=== PATIENT | female | born 1950 | race Asian ===

== ENCOUNTER 2020-12-17 20:56 | Inpatient (IN) | payer BC, OTHER ==
[~2020-12-17] VITALS: Ht 154.9 cm; Wt 52.4 kg
[2020-12-17] MEDS ORDERED: ONDANSETRON HCL 4 MG/2 ML VIAL IV ONE (21:30)
[2020-12-17] MEDS ORDERED: fentaNYL CITRATE 100 MCG/2 ML VL IV ONE ×2 (21:30→23:30)
[2020-12-17 21:31] LABS: Basophils # (auto) 0.1 10 ^3/uL (0-0.2); Basophils % (auto) 1.1 % (0.0-2.0); Eosinophils # (auto) 0 10 ^3/uL (0-0.8); Eosinophils % (auto) 0.2 % (0.0-7.0); Hematocrit 41.3 % (36.0-46.0); Hemoglobin 14.1 g/dL (12.2-16.2); Lymphocytes # (auto) 1.7 10 ^3/uL (0.4-5.4); Lymphocytes % (auto) 16.7 % (10.0-50.0); Mean Corpuscular Hemoglobin 32.7 pg (28.0-32.0); Mean Corpuscular Volume 96.1 fL (80.0-100.0); Monocytes # (auto) 0.5 10 ^3/uL (0-1.3); Monocytes % (auto) 4.7 % (0.0-12.0); Neutrophils # (auto) 7.9 10 ^3/uL (1.6-8.6); Neutrophils % (auto) 77.3 % (37.0-80.0); Red Cell Distribution Width 12.5 % (11.8-14.3); White Blood Cell 10.2 10^3/uL (4.4-10.8)
[2020-12-17 21:45] LABS: INR 0.97 (0.9-1.15)
[2020-12-17] MEDS ORDERED: SODIUM CHLORIDE 0.9% 1,000 ML IV ONE (21:45)
[2020-12-17 21:48] LABS: Albumin 4.3 g/dL (3.4-5.0); Calcium 10.7 mg/dL (8.5-10.1); Potassium 3.6 mmol/L (3.5-5.1)
[2020-12-17 21:52] LABS: BUN/Creatinine Ratio 44.2; Bilirubin, Total 0.4 mg/dL (0.2-1.0); Total Protein 7.4 g/dL (6.4-8.2)
[2020-12-17] MEDS ORDERED: IOHEXOL 300 MG/ML 100ML BOTTLE IJ ONE (22:32)
[2020-12-18] MEDS ORDERED: HYDROmorphone HCL 2 MG/ML VL IV ONE (01:15)
[2020-12-18] MEDS ORDERED: CIPROFLOXACIN 400MG/200ML 200 ML IV ONE (01:15)
[2020-12-18] MEDS ORDERED: metroNIDAZOLE 500MG/100ML 100 ML IV ONE (01:15)
[2020-12-18 01:27] LABS: Urine Bacteria NONE SEEN /hpf (None Seen); Urine Blood 1+ /uL (Negative); Urine Mucus FEW (None Seen); Urine WBC 1 /hpf (0 - 5)
[2020-12-18 01:34] LABS: Urine Specific Gravity > 1.050 (1.001-1.035)
[2020-12-18] MEDS ORDERED: MORPHINE SULFATE INJECTION 2 MG/ML SYRG IV PRN ×2 (02:45→11:30)
[2020-12-18] MEDS ORDERED: NITROGLYCERIN 0.4 MG SL TAB SL PRN (02:45)
[2020-12-18] MEDS: SODIUM CHLORIDE 0.9% 1,000 ML IV SCH ×2 (03:03→14:25)
[2020-12-18 04:04] LABS: Hematocrit 38.3 % (36.0-46.0); Hemoglobin 12.9 g/dL (12.2-16.2)
[2020-12-18 05:00] VITALS: BP 129/74
[2020-12-18] MEDS: metroNIDAZOLE 500MG/100ML 100 ML IV SCH ×3 (05:22→21:50)
[2020-12-18 09:00] VITALS: BP 122/60
[2020-12-18] MEDS: PANTOPRAZOLE 40 MG/10 ML VIAL INJ IV SCH ×2 (09:32→21:50)
[2020-12-18] MEDS: ONDANSETRON HCL 4 MG/2 ML VIAL IV PRN ×2 (11:40→15:43)
[2020-12-18 13:00] VITALS: BP 134/76
[2020-12-18] MEDS: MORPHINE SULFATE INJECTION 2 MG/ML SYRG IV PRN ×2 (15:44→19:57)
[2020-12-18 17:00] VITALS: BP 110/67
[2020-12-18 18:49] LABS: Hematocrit 36.5 % (36.0-46.0); Hemoglobin 12.4 g/dL (12.2-16.2)
[2020-12-18 22:00] VITALS: BP 116/53
[2020-12-19] MEDS: SODIUM CHLORIDE 0.9% 1,000 ML IV SCH ×3 (02:17→09:25)
[2020-12-19 05:00] VITALS: BP 100/56
[2020-12-19] MEDS: metroNIDAZOLE 500MG/100ML 100 ML IV SCH ×3 (05:32→23:04)
[2020-12-19 07:32] LABS: Basophils # (auto) 0 10 ^3/uL (0-0.2); Basophils % (auto) 0.4 % (0.0-2.0); Eosinophils # (auto) 0 10 ^3/uL (0-0.8); Eosinophils % (auto) 0.3 % (0.0-7.0); Hematocrit 33.1 % (36.0-46.0); Hemoglobin 11.5 g/dL (12.2-16.2); Lymphocytes # (auto) 1.4 10 ^3/uL (0.4-5.4); Lymphocytes % (auto) 13.4 % (10.0-50.0); Mean Corpuscular Hemoglobin 33.6 pg (28.0-32.0); Mean Corpuscular Hgb Conc. 34.8 g/dL (32.0-36.0); Mean Corpuscular Volume 96.5 fL (80.0-100.0); Monocytes # (auto) 0.6 10 ^3/uL (0-1.3); Monocytes % (auto) 5.3 % (0.0-12.0); Neutrophils # (auto) 8.7 10 ^3/uL (1.6-8.6); Neutrophils % (auto) 80.6 % (37.0-80.0); Nucleated Red Blood Cells % 0.1 %; Red Blood Cells 3.43 10^6/uL (4.0-5.20); Red Cell Distribution Width 12.5 % (11.8-14.3); White Blood Cell 10.8 10^3/uL (4.4-10.8)
[2020-12-19 07:55] LABS: Albumin 2.8 g/dL (3.4-5.0); Calcium 7.5 mg/dL (8.5-10.1); Potassium 3.2 mmol/L (3.5-5.1)
[2020-12-19 07:59] LABS: Bilirubin, Total 0.6 mg/dL (0.2-1.0); Total Protein 5.4 g/dL (6.4-8.2)
[2020-12-19 08:47] VITALS: BP 98/47
[2020-12-19] MEDS: PANTOPRAZOLE 40 MG/10 ML VIAL INJ IV SCH ×2 (09:25→23:04)
[2020-12-19] MEDS ORDERED: cefTRIAXone 1GM/50ML D5W 50 ML IV ONE (10:45)
[2020-12-19] MEDS ORDERED: POTASSIUM CHLORIDE 40 MEQ, LIDOCAINE 1% (LOCAL ANESTH.) 4 ML in SODIUM CHL 0.9% 250 ML IV ONE (10:45)
[2020-12-19 13:00] VITALS: BP 108/51
[2020-12-19] MEDS: MORPHINE SULFATE INJECTION 2 MG/ML SYRG IV PRN (14:37)
[2020-12-19 16:46] VITALS: BP 95/47
[2020-12-19 22:00] VITALS: BP 115/59
[2020-12-20 05:00] VITALS: BP 111/63
[2020-12-20] MEDS: MORPHINE SULFATE INJECTION 2 MG/ML SYRG IV PRN (05:10)
[2020-12-20] MEDS: metroNIDAZOLE 500MG/100ML 100 ML IV SCH ×3 (05:58→22:39)
[2020-12-20 06:52] LABS: Basophils # (auto) 0 10 ^3/uL (0-0.2); Basophils % (auto) 0.5 % (0.0-2.0); Eosinophils # (auto) 0.1 10 ^3/uL (0-0.8); Eosinophils % (auto) 1.4 % (0.0-7.0); Hemoglobin 11.4 g/dL (12.2-16.2); Lymphocytes # (auto) 1.6 10 ^3/uL (0.4-5.4); Lymphocytes % (auto) 19.9 % (10.0-50.0); Mean Corpuscular Hemoglobin 33.8 pg (28.0-32.0); Mean Corpuscular Hgb Conc. 35.5 g/dL (32.0-36.0); Mean Corpuscular Volume 95.3 fL (80.0-100.0); Monocytes # (auto) 0.3 10 ^3/uL (0-1.3); Monocytes % (auto) 3.3 % (0.0-12.0); Neutrophils # (auto) 6.1 10 ^3/uL (1.6-8.6); Neutrophils % (auto) 74.9 % (37.0-80.0); Red Blood Cells 3.36 10^6/uL (4.0-5.20); Red Cell Distribution Width 12.4 % (11.8-14.3); White Blood Cell 8.2 10^3/uL (4.4-10.8)
[2020-12-20 07:07] LABS: Albumin 2.7 g/dL (3.4-5.0); Calcium 7.6 mg/dL (8.5-10.1); Potassium 3.6 mmol/L (3.5-5.1)
[2020-12-20 07:10] LABS: BUN/Creatinine Ratio 15.2; Bilirubin, Total 0.3 mg/dL (0.2-1.0); Total Protein 5.3 g/dL (6.4-8.2)
[2020-12-20 09:00] VITALS: BP 111/57
[2020-12-20] MEDS: cefTRIAXone 1GM/50ML D5W 50 ML IV SCH (09:29)
[2020-12-20 13:00] VITALS: BP 132/71
[2020-12-20 17:00] VITALS: BP 111/60
[2020-12-20 22:00] VITALS: BP 117/56
[2020-12-21 04:57] VITALS: BP 124/58
[2020-12-21] MEDS: metroNIDAZOLE 500MG/100ML 100 ML IV SCH ×2 (05:45→16:21)
[2020-12-21 09:00] VITALS: BP 121/71
[2020-12-21] MEDS: cefTRIAXone 1GM/50ML D5W 50 ML IV SCH (10:30)
[2020-12-21 12:09] LABS: Basophils # (auto) 0 10 ^3/uL (0-0.2); Basophils % (auto) 0.7 % (0.0-2.0); Eosinophils # (auto) 0.1 10 ^3/uL (0-0.8); Eosinophils % (auto) 2.6 % (0.0-7.0); Hematocrit 35.3 % (36.0-46.0); Hemoglobin 12.3 g/dL (12.2-16.2); Lymphocytes # (auto) 1.5 10 ^3/uL (0.4-5.4); Lymphocytes % (auto) 27.1 % (10.0-50.0); Mean Corpuscular Hgb Conc. 34.9 g/dL (32.0-36.0); Mean Corpuscular Volume 94.8 fL (80.0-100.0); Monocytes # (auto) 0.3 10 ^3/uL (0-1.3); Monocytes % (auto) 5.3 % (0.0-12.0); Neutrophils # (auto) 3.5 10 ^3/uL (1.6-8.6); Neutrophils % (auto) 64.3 % (37.0-80.0); Red Blood Cells 3.73 10^6/uL (4.0-5.20); Red Cell Distribution Width 12.5 % (11.8-14.3); White Blood Cell 5.5 10^3/uL (4.4-10.8)
[2020-12-21 13:00] VITALS: BP 138/77
[2020-12-21] MEDS ORDERED: METR500T PO (14:30)
[2020-12-21] MEDS ORDERED: LEVO500T31 PO (14:32)
[2020-12-21 16:15] VITALS: BP 151/87
== END 2020-12-21 17:30 | disposition home or self-care (01) | DRG 372 ==
LOC: ER 20:59 → TELE 12-18 02:47 → TELE-WESTW 12-18 04:31
PROVIDERS: ADMIT Nurse Practitioner; ATTEND Internal Medicine Nephrology
DX: A04.9 Bacterial intestinal infection, unspecified (principal); K92.1 Melena; D62 Acute posthemorrhagic anemia; F17.210 Nicotine dependence, cigarettes, uncomplicated; E87.6 Hypokalemia; E88.09 Other disorders of plasma-protein metabolism, not elsewhere classified; R00.1 Bradycardia, unspecified; Z20.822 Contact with and (suspected) exposure to COVID-19
CPT/HCPCS: 36415; 74177; 80053; 81001; 82270; 84443; 85014; 85018; 85025; 85048; 85610; 85730; 86850; 86900; 86901; 87040; 87045; 87426; 87427; 87493; 96361; 96365; 96368; 96375; 96376; C9113; G0378; J0696; J2001; J2405; J3490

== ENCOUNTER 2024-12-19 11:41 | Inpatient (IN) | payer BC, MEDICARE, OTHER ==
[~2024-12-19] VITALS: Ht 157.5 cm; Wt 48.7 kg
[~2024-12-19 11:41] MED LIST: LEVO500T31 PO; METR500T PO
--- NOTE | 2024-12-19 11:51 | ED.PDOC ---
Altered Mental Status HPI Comments 74 y.o female with PMHx of Alzheimer and multiple GI issues including bowel infections, presents to the ED via EMS s/p syncopal episode today. EMS reports per family on scene, patient complained of abdominal pain that started about 45 minutes ago, states she went to the restroom and while sitting on the toilet, had the syncopal episode. Patient was cool, pale and diaphoretic upon EMS's arrival on scene with EKG reading sinus bradycardiac and BG of 145. Blood pressure was reported wnl. While en route, EMS noted patient was notably improving and denied any lightheadedness. Time Seen by MD: 11:43 Reviewed Notes: Nurses Notes, Director Of Photography Notes, Medications, Allergies Allergies: Coded Allergies: NO KNOWN ALLERGIES (Unverified , 12/17/20) Home Meds Active Scripts Levofloxacin (Levaquin) 500 Mg Tab, 500 MG PO DAILY for 7 Days, #7 TAB Prov:WILTON PINEDA MD 12/21/20 Metronidazole (Flagyl) 500 Mg Tab, 500 MG PO TID for 10 Days, #30 TAB 0 Refills Prov:WILTON PINEDA MD 12/21/20 Information Source: Emergency Med Personnel Mode of Arrival: EMS Severity: Moderate Timing: Minutes (45) Duration: Since onset Quality: Decreased Alertness Recent: Other (abdominal pain ) History of: None Associated Signs and Symptoms: Other Past Medical History PAST MEDICAL HISTORY: Alzheimer Past Medical History (Other): Multiple GI issues including bowel infections Surgical History: Denies all surgeries MEDICAL I D SALES History: Denies all MEDICAL I D SALES Hx Family History Family History: Reviewed,noncontributory to illness Social History Smoker: Cigarettes, Less Than 1 Pack/Day Alcohol: Denies ETOH Use Drugs: Denies Drug Use Lives In: Home Constitutional: denies: chills, diaphoresis, fatigue, fever, malaise, sweats, weakness, others EENTM: denies: blurred vision, double vision, ear bleeding, ear discharge, ear drainage, ear pain, ear ringing, eye pain, eye redness, hearing loss, mouth pain, mouth swelling, nasal discharge, nose bleeding, nose congestion, nose pain, photophobia, tearing, throat pain, throat swelling, voice changes, others Respiratory: denies: cough, hemoptysis, orthopnea, SOB at rest, shortness of breath, SOB with excertion, stridor, wheezing, others Cardiovascular: reports: syncope; denies: chest pain, dizzy spells, diaphoresis, Dyspnea on exertion, edema, irregular heart beat, left arm pain, lightheadedness, palpitations, PND, others Gastrointestinal: reports: abdominal pain; denies: abdomen distended, blood streaked bowels, constipated, diarrhea, dysphagia, difficulty swallowing, hematemesis, melena, nausea, poor appetite, poor fluid intake, rectal bleeding, rectal pain, vomiting, others Genitourinary: denies: abnormal vagina bleeding, burning, dyspareunia, dysuria, flank pain, frequency, hematuria, incontinence, pain, , vagina discharge, urgency, others Neurological: denies: dizziness, fainting, headache, left sided numbness, left sided weakness, numbness, paresthesia, pre-existing deficit, right sided numbness, right sided weakness, seizure, speech problems, tingling, tremors, weakness, others Musculoskeletal: denies: back pain, gout, joint pain, joint swelling, muscle pain, muscle stiffness, neck pain, others Integumetry: denies: bruises, change in color, change in hair/nails, dryness, laceration, lesions, lumps, rash, wounds, others Allergic/Immunocompromised: denies: Difficulty Healing, Frequent Infections, Hives, Itching, others Hematologic/Lymphatic: denies: anemia, blood clots, easy bleeding, easy bruising, swollen glands, others Endocrine: denies: excessive hunger, excessive sweating, excessive thirst, excessive urination, flushing, intolerance to cold, intolerance to heat, unexplained weight gain, unexplained weight loss, others Psychiatric: denies: anxiety, bipolar disorder, depression, hopeless, panic disorder, schizophrenia, sleepless, suicidal, others All Other Systems: Reviewed and Negative Physical Exam General Appearance: Moderate Distress HEENT: Pale Conjuntivae (L), Pale Conjuntivae (R), Pharynx Normal, TMs Normal Neck: Full Range of Motion, Non-Tender, Normal, Normal Inspection Respiratory: Chest Non-Tender, Lungs Clear, No Accessory Muscle Use, No Respiratory Distress, Normal Breath Sounds Cardiovascular: No Edema, No JVD, No Murmur, No Gallop, Normal Peripheral Pulses, Regular Rate/Rhythm Breast Exam: Deferred Gastrointestinal: Diffuse, No Organomegaly, No Pulsatile Mass, Normal Bowel Sounds, Soft, Tenderness Genitalia: Deferred Pelvic: Deferred Rectal: Deferred Extremities: No calf tenderness, Normal capillary refill, Normal inspection, Normal range of motion, Non-tender, No pedal edema Musculoskeletal : Apperance: Normal Neurologic: Alert, cyberathlete II-XII nml as Tested, No Motor Deficits, Normal Affect, Normal Mood, No Sensory Deficits Cerebellar Function: Normal Reflexes: Normal Skin: Dry, Pallor, Warm Lymphatic: No Adenopathy EKG EKG : Pulse Rate (adult): 45 Cardiac Rhythm: SB Was a procedure done? Was a procedure done?: No Differential Diagnosis (ALOC) Differential Diagnosis: Dehydration, Hypoglycemia, Hypoxemia, Closed Head Injury X-Ray, Labs, Meds, VS Vital Signs Date Time Temp Pulse Resp B/P (MAP) Pulse Ox O2 Delivery O2 Flow Rate FiO2 12/19/24 12:13 97.8 45 18 135/85 (102) 98 97.8 12/19/24 12:04 Room Air* 0 21 12/19/24 11:51 45 12/19/24 11:46 45 12/19/24 11:41 98.9 48 16 139/67 (91) 95 98.9 Lab Test 12/19/24 12:15 Range/Units White Blood Count 5.8 4.4-10.8 10^3/uL Red Blood Count 4.40 4.0-5.20 10^6/uL Hemoglobin 15.0 12.2-16.2 g/dL Hematocrit 42.6 36.0-46.0 % Mean Corpuscular Volume 96.9 80.0-100.0 fL Mean Corpuscular Hemoglobin 34.0 H 28.0-32.0 pg Mean Corpuscular Hemoglobin Concent 35.1 32.0-36.0 g/dL Red Cell Distribution Width 12.2 11.8-14.3 % Platelet Count 272 140-450 10^3/uL Mean Platelet Volume 6.7 L 6.9-10.8 fL Neutrophils (%) (Auto) 75.9 37.0-80.0 % Lymphocytes (%) (Auto) 20.0 10.0-50.0 % Monocytes (%) (Auto) 1.6 0.0-12.0 % Eosinophils (%) (Auto) 1.8 0.0-7.0 % Basophils (%) (Auto) 0.7 0.0-2.0 % Neutrophils # (Auto) 4.4 1.6-8.6 10 ^3/uL Lymphocytes # (Auto) 1.2 0.4-5.4 10 ^3/uL Monocytes # (Auto) 0.1 0-1.3 10 ^3/uL Eosinophils # (Auto) 0.1 0-0.8 10 ^3/uL Basophils # (Auto) 0 0-0.2 10 ^3/uL Nucleated Red Blood Cells 0.1 % Prothrombin Time 10.3 9.3-11.8 sec Prothrombin Time INR 0.97 0.9-1.15 Activated Partial Thromboplast Time 23.6 L 24.5-34.5 SEC Sodium Level 140 136-145 mmol/L Potassium Level 5.0 3.5-5.1 mmol/L Chloride Level 102 98-107 mmol/L Carbon Dioxide Level 30 20-31 mmol/L Anion Gap 8 5-15 Blood Urea Nitrogen 12 9-23 mg/dL Creatinine 0.92 0.550-1.02 mg/dL Glomerular Filtration Rate Calc 66 >90 mL/min BUN/Creatinine Ratio 13.0 10.0-20.0 Serum Glucose 146 H 74-106 mg/dL Calcium Level 9.8 8.7-10.4 mg/dL Total Bilirubin 0.6 0.2-1.0 mg/dL Aspartate Amino Transferase (AST) 26 13-40 U/L Alanine Aminotransferase (ALT) 17 7-40 U/L Alkaline Phosphatase 57 46-116 U/L Total Protein 6.6 5.7-8.2 g/dL Albumin 4.3 3.2-4.8 g/dL CT scan of the abdomen and pelvis shows: IMPRESSION: Possible colitis. Distended stomach. The patient's CBC is within normal limits The chemistry panel is within normal limits The patient is being admitted at this time The patient will be diagnosed with this autonomic dysfunction The EKG shows bradycardia so we are calling the symptomatic bradycardia as well Images Reviewed?: Images reviewed and evaluated by me Time of 1ST Reevaluation: 11:45 Reevaluation 1ST: Unchanged Patient Education/Counseling: Diagnosis, Treatment, Prognosis Family Education/Counseling: No Family Present SEPSIS Sepsis Screen Physician Orders Urinalysis (12/19/24 11:48) Ct Ab Pel Wo Con-No Oral Or Iv (12/19/24 11:48) Heplock Iv (12/19/24 11:48) Electrocardigram (12/19/24 11:48) Vital Signs Date Time Temp Pulse Resp B/P (MAP) Pulse Ox O2 Delivery O2 Flow Rate FiO2 12/19/24 12:13 97.8 45 18 135/85 (102) 98 97.8 12/19/24 12:04 Room Air* 0 21 12/19/24 11:51 45 12/19/24 11:46 45 12/19/24 11:41 98.9 48 16 139/67 (91) 95 98.9 Laboratory Tests Test 12/19/24 12:15 White Blood Count 5.8 10^3/uL (4.4-10.8) Departure 1 Departure Time of Disposition: 13:55 Impression: Primary Impression: Symptomatic bradycardia Additional Impression: Autonomic dysfunction Disposition: ADMITTED INPATIENT Admit to: Tele Condition: Fair Critical Care Note Critical Care Time?: Yes (45 min-critical care time only) Stability Stability form required: Yes Unstable for transfer: Telemetry monitoring (Telemetry monitoring required), ED Physician Assesment (Clinical assesment) Heart Score Heart Score: Heart Score Response (Comments) Value History Moderate Suspicious 1 EKG Normal 0 Age >65 2 Risk Factors 1 or 2 risk factors 1 Troponin N/A 0 Total 4 I personally scribed for DENIS JENKINS MD ([email or web address]) on 12/19/24 at 11:51. Electronically submitted by Yesi Boyle ([facility]). DENIS JENKINS MD Dec 19, 2024 11:51
[2024-12-19 12:45] LABS: Hematocrit 42.6 % (36.0-46.0); Hemoglobin 15.0 g/dL (12.2-16.2); Mean Corpuscular Hemoglobin 34.0 pg (28.0-32.0); Mean Corpuscular Volume 96.9 fL (80.0-100.0); Nucleated Red Blood Cells % 0.1 %
--- NOTE | 2024-12-19 12:52 | DVH ---
Exam: CT CT AB PEL WO CON-NO ORAL OR IV History: Episode of syncope Comparison Study: None Technique: Multidetector spiral CT of the abdomen was performed from lung bases to pubic symphysis. I maging was performed without IV contrast. Axial, coronal and sagittal multiplanar reformats were obta ined from the axial data set by the technologist. Radiation Dose : 1. Abdomen/Pelvis: CTDIvol 5.1 mGy, DLP 282.5 mGy*cm. Findings: Evaluation of solid organs is limited due to lack of intravenous contrast use. Lung Bases: Dependent atelectasis. Liver: The liver is normal in size. No focal lesions. Gallbladder and Biliary Tree: Unremarkable Spleen: Unremarkable Pancreas: The pancreas is grossly normal in appearance. Adrenal Glands: Unremarkable Kidneys: Kidneys are grossly normal without calculi or hydronephrosis. Bladder: Grossly unremarkable for degree of distention. Bowel: Distended stomach. Moderate diffuse colonic bowel wall thickening. The appendix is not visuali zed; however, no secondary findings of acute appendicitis identified. Ascites: Absent Lymphadenopathy: No mesenteric, retroperitoneal or periportal lymphadenopathy. Abdominal Wall and Mesentery: Unremarkable. Vasculature: The visualized abdominal aorta is normal in size and caliber. There is extensive athero sclerotic calcification of the aorta and its branches. Evaluation of abdominal and pelvic vessels is limited due to lack of intravenous contrast. Pelvic Organs: Unremarkable Musculoskeletal: No aggressive focal bony lesions, acute fractures or dislocation. IMPRESSION: Possible colitis. Distended stomach.
[2024-12-19 13:00] LABS: INR 0.97 (0.9-1.15); Partial Thromboplastin Time 23.6 SEC (24.5-34.5); Prothrombin Time 10.3 sec (9.3-11.8)
[2024-12-19 13:13] LABS: Alanine Aminotransferase 17 U/L (7-40); Albumin 4.3 g/dL (3.2-4.8); Alkaline Phosphatase 57 U/L (46-116); Anion Gap 8 (5-15); BUN/Creatinine Ratio 13.0 (10.0-20.0); Blood Urea Nitrogen 12 mg/dL (9-23); Calcium 9.8 mg/dL (8.7-10.4); Carbon Dioxide 30 mmol/L (20-31); Chloride 102 mmol/L (98-107); Potassium 5.0 mmol/L (3.5-5.1); Sodium 140 mmol/L (136-145); Total Protein 6.6 g/dL (5.7-8.2)
[2024-12-19 13:14] LABS: Bilirubin, Total 0.6 mg/dL (0.2-1.0)
[2024-12-19 13:15] LABS: Glucose 146 mg/dL (74-106)
[2024-12-19] MEDS: MORPHINE SULFATE INJ 2 MG/ml SYRG IV ONE (15:28)
[2024-12-19] MEDS ORDERED: NITROGLYCERIN 0.4 MG SL TAB SL PRN (17:00)
[2024-12-19] MEDS ORDERED: DOCUSATE SOD 100 MG CAP PO PRN (17:00)
[2024-12-19] MEDS ORDERED: ACETAMINOPHEN 325 MG TAB PO PRN (17:00)
[2024-12-19] MEDS ORDERED: NORT10CA PO (17:05)
[2024-12-19] MEDS ORDERED: DULO1CAP6 PO (17:05)
[2024-12-19] MEDS ORDERED: DONE1TAB88 PO (17:05)
[2024-12-19] MEDS ORDERED: MEMA1TAB5 PO (17:05)
--- NOTE | 2024-12-19 17:27 | DVHHP2 ---
History of Present Illness Reason for Visit: Syncope History of Present Illness Seema Acevedo is a 74-year-old female with past medical history of colitis, dementia, anxiety, and depression who came to the hospital after a syncopal event. Patient states she had 2 syncopal events today. the first was in the kitchen, she became dizzy and lightheaded and collapsed. The second was when she was on the toilet. She was trying to have a bowel movement when she began experiencing severe pain, diaphoresis, and then collapsed. She states she had a similar event a couple years ago when her colitis flared up. She states she was bleeding heavily during the first event, but that she has only had a few drops of blood this time. Patient was noted to be bradycardic in the 40-50's, BP is stable. She is not sure if her usual heart rate is low, she does know that she has been told that she has a low BP before. 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 GI: GI bleed, Other (Colitis) Psych: Anxiety, Depression Past Surgical History: None Smoke: <1 pack per day ALCOHOL: none Drugs: None Lives: with Family Domestic Violence: Neg Review of Systems Constitutional: Yes: Sweats; No: Fever, Chills, Weakness, Malaise, Other Eyes: No: Pain, Vision change, Conjunctivae inflammation, Eyelid inflammation, Other, Redness ENT: No: Ear pain, Ear discharge, Nose pain, Nose discharge, Nose congestion, Mouth pain, Mouth swelling, Throat pain, Throat swelling, Other Respiratory: No: Cough, Dry, Shortness of breath, SOB with excertion, Wheezing, Hemoptysis, Pleuritic Pain, Sputum, Wheezing, Other Cardiovascular: No: Chest Pain, Palpitations, Orthopnea, Paroxysmal Noc. Dyspnea, Edema, Lt Headedness, Other Gastrointestinal: Nausea, Abdominal Pain, Diarrhea (blood in stool, minimal); No: Vomiting, Constipation, Melena, Hematochezia, Other Genitourinary: No Dysuria, No Frequency, No Incontinence, No Hematuria, No Retention, No Other Musculoskeletal: No: other, neck pain, shoulder pain, arm pain, back pain, hand pain, leg pain, foot pain Skin: No: Rash, Lesions, Jaundice, Bruising, Other Neurological: Weakness, Other (syncopal episdose, dizzy); No: Numbness, I ncoordination, Change in speech, Confusion, Seizures Allergies: Coded Allergies: NO KNOWN ALLERGIES (Unverified , 12/17/20) Medications Current Medications Medications Dose Ordered Sig/Marky Route Start Time Stop Time Status Last Admin Dose Admin Acetaminophen/ Hydrocodone Bitart 1 tab Q4HP PRN PO 12/19/24 17:00 UNV Exam Vital Signs Vital Signs Date Time Temp Pulse Resp B/P (MAP) Pulse Ox O2 Delivery O2 Flow Rate FiO2 12/19/24 16:00 45 12/19/24 15:58 15 134/63 12/19/24 14:00 99 12/19/24 12:13 97.8 97.8 12/19/24 12:04 Room Air* 0 21 General Appearance: Alert, Oriented X3, Cooperative, mild distress HEENT: Atraumatic, PERRLA Respiratory: Clear to auscultation, Normal air movement Cardiovascular: Normal S1, Normal S2, Other (bradycardia) Abdominal: Normal bowel sounds, Soft, Other (Right and Left Lower abdominal pain and pelvic pain) Extremities: No clubbing, No cyanosis, No edema, Normal pulses Skin: No rashes, No breakdown, No significant lesion Neuro: Normal gait, Normal speech, Strength at 5/5 X4 ext, Normal tone Psych/Mental Status: Mental status NL, Mood NL Labs/Xrays Labs Test 12/19/24 12:15 Range/Units White Blood Count 5.8 4.4-10.8 10^3/uL Red Blood Count 4.40 4.0-5.20 10^6/uL Hemoglobin 15.0 12.2-16.2 g/dL Hematocrit 42.6 36.0-46.0 % Mean Corpuscular Volume 96.9 80.0-100.0 fL Mean Corpuscular Hemoglobin 34.0 H 28.0-32.0 pg Mean Corpuscular Hemoglobin Concent 35.1 32.0-36.0 g/dL Red Cell Distribution Width 12.2 11.8-14.3 % Platelet Count 272 140-450 10^3/uL Mean Platelet Volume 6.7 L 6.9-10.8 fL Neutrophils (%) (Auto) 75.9 37.0-80.0 % Lymphocytes (%) (Auto) 20.0 10.0-50.0 % Monocytes (%) (Auto) 1.6 0.0-12.0 % Eosinophils (%) (Auto) 1.8 0.0-7.0 % Basophils (%) (Auto) 0.7 0.0-2.0 % Neutrophils # (Auto) 4.4 1.6-8.6 10 ^3/uL Lymphocytes # (Auto) 1.2 0.4-5.4 10 ^3/uL Monocytes # (Auto) 0.1 0-1.3 10 ^3/uL Eosinophils # (Auto) 0.1 0-0.8 10 ^3/uL Basophils # (Auto) 0 0-0.2 10 ^3/uL Nucleated Red Blood Cells 0.1 % Prothrombin Time 10.3 9.3-11.8 sec Prothrombin Time INR 0.97 0.9-1.15 Activated Partial Thromboplast Time 23.6 L 24.5-34.5 SEC Sodium Level 140 136-145 mmol/L Potassium Level 5.0 3.5-5.1 mmol/L Chloride Level 102 98-107 mmol/L Carbon Dioxide Level 30 20-31 mmol/L Anion Gap 8 5-15 Blood Urea Nitrogen 12 9-23 mg/dL Creatinine 0.92 0.550-1.02 mg/dL Glomerular Filtration Rate Calc 66 >90 mL/min BUN/Creatinine Ratio 13.0 10.0-20.0 Serum Glucose 146 H 74-106 mg/dL Calcium Level 9.8 8.7-10.4 mg/dL Total Bilirubin 0.6 0.2-1.0 mg/dL Aspartate Amino Transferase (AST) 26 13-40 U/L Alanine Aminotransferase (ALT) 17 7-40 U/L Alkaline Phosphatase 57 46-116 U/L Total Protein 6.6 5.7-8.2 g/dL Albumin 4.3 3.2-4.8 g/dL Exam: CT CT AB PEL WO CON-NO ORAL OR IV Findings: Evaluation of solid organs is limited due to lack of intravenous contrast use. Lung Bases: Dependent atelectasis. Liver: The liver is normal in size. No focal lesions. Gallbladder and Biliary Tree: Unremarkable Spleen: Unremarkable Pancreas: The pancreas is grossly normal in appearance. Adrenal Glands: Unremarkable Kidneys: Kidneys are grossly normal without calculi or hydronephrosis. Bladder: Grossly unremarkable for degree of distention. Bowel: Distended stomach. Moderate diffuse colonic bowel wall thickening. The appendix is not visualized; however, no secondary findings of acute appendicitis identified. Ascites: Absent Lymphadenopathy: No mesenteric, retroperitoneal or periportal lymphadenopathy. Abdominal Wall and Mesentery: Unremarkable. Vasculature: The visualized abdominal aorta is normal in size and caliber. There is extensive atherosclerotic calcification of the aorta and its branches. Evaluation of abdominal and pelvic vessels is limited due to lack of intravenous contrast. Pelvic Organs: Unremarkable Musculoskeletal: No aggressive focal bony lesions, acute fractures or dislocation. IMPRESSION: Possible colitis. Distended stomach. SEPSIS Sepsis Screen Date sepsis recognized/suspect: Dec 19, 2024 Time Sepsis recognized/suspect: 8 Recent Procedure: No On Antibiotic Therapy: No Respiratory Rate >20: No Heart Rate >90: No Temp<36 C (96.8 F) or >38.3 C: No SBP <90 or MAP <65 mmHG: No New Acute Mental Status Change: No Is the patient on CPAP, BIPAP,: No Physician Orders Urinalysis (12/19/24 11:48) Ct Ab Pel Wo Con-No Oral Or Iv (12/19/24 11:48) Heplock Iv (12/19/24 11:48) Electrocardigram (12/19/24 11:48) Admit (12/19/24 16:59) Code Status (12/19/24 16:59) 2 Gm Sodium Diet (12/19/24 Dinner) Hydrocodone-Acet 5/325mg Tab ([place] 5/32 (12/19/24 17:00) Ondansetron Hcl (Zofran) (12/19/24 17:00) Docusate Sodium Capsule (Colace Capsule) (12/19/24 17:00) Fall Risk Precautions In Place QSHIFT (12/19/24 16:59) Complete Blood Count (12/20/24 04:00) Comprehensive Metabolic Panel (12/20/24 04:00) Echo 2d Mode Cardiac Dop (12/19/24 16:59) Carotid Duplx W Color Dop (12/19/24 16:59) Condition: Serious (12/19/24 16:59) Acetaminophen Tablet (Tylenol Tablet) (12/19/24 17:00) Nitroglycerin Sublingual (Ntrostat Subli (12/19/24 17:00) Morphine Sulfate Injection (12/19/24 17:00) Stat Ekg For Chest Pain (12/19/24 16:59) Notify Md Of Changes From Base (12/19/24 16:59) Carpet Cleaning Technician For 24 Hours (12/19/24 16:59) Emergency Dysrhythmia Protocol (12/19/24 16:59) Rhythm Strips Once Every Shift (12/19/24 16:59) Oxygen By Nasal Cannula (12/19/24 16:59) Vital Signs Date Time Temp Pulse Resp B/P (MAP) Pulse Ox O2 Delivery O2 Flow Rate FiO2 12/19/24 16:00 45 12/19/24 15:58 58 15 134/63 12/19/24 15:28 55 19 127/62 12/19/24 14:00 50 18 136/69 (91) 99 12/19/24 12:13 97.8 45 18 135/85 (102) 98 97.8 12/19/24 12:04 Room Air* 0 21 12/19/24 11:51 45 12/19/24 11:46 45 12/19/24 11:41 98.9 48 16 139/67 (91) 95 98.9 Laboratory Tests Test 12/19/24 12:15 White Blood Count 5.8 10^3/uL (4.4-10.8) Medications Medications Dose Ordered Sig/Marky Route Start Time Stop Time Status Last Admin Dose Admin Morphine Sulfate 2 mg ONCE ONCE IV 12/19/24 15:30 12/19/24 15:31 DC 12/19/24 15:28 2 MG Assessment/Plan Assessment/Plan Assessment: Autonomic dysfunction, Syncopal episode, Bradycardia, Intractable abdominal pain, Possible colitis, Possible lower GI bleed, Dementia, Anxiety, Depression, Plan: Admit to Tele, Cardiology consult, Consider Neurology consult if symptoms do not improve, Consider GI consult if symptoms do not improve, IV hydration, IV antibiotics, ECHO, Carotid duplex, Home medications reconciled, Plan discussed with: Patient My Orders Orders - ALECAI CADET PIPE WELDER Procedure Category Date Status Time Admit ADMIT 12/19/24 Transmitted 16:59 Code Status CODE 12/19/24 Transmitted 16:59 2 Gm Sodium Diet DIET 12/19/24 Transmitted Dinner Hydrocodone-Acet PHA 12/19/24 Transmitted 5/325mg Tab ([place] 17:00 Ondansetron Hcl PHA 12/19/24 Transmitted (Zofran) 17:00 Docusate Sodium PHA 12/19/24 Transmitted Capsule (Colace 17:00 Fall Risk Precautions VANESSA 12/19/[address] 16:59 Complete Blood Count LAB 12/20/24 Verified 04:00 Comprehensive LAB 12/20/24 Verified Metabolic Panel 04:00 Echo 2d Mode Cardiac US 12/19/24 Transmitted DOP 16:59 Carotid Duplx W Color US 12/19/24 Transmitted DOP 16:59 Condition: Serious VANESSA 12/19/24 Transmitted 16:59 Acetaminophen Tablet [facility] 12/19/24 Transmitted (Tylenol Tablet) 17:00 Nitroglycerin PHA 12/19/24 Transmitted Sublingual (Ntrostat 17:00 Morphine Sulfate PHA 12/19/24 Transmitted Injection 17:00 Stat Ekg For Chest VANESSA 12/19/24 Transmitted Pain 16:59 Notify Of Changes [facility] 12/19/24 Transmitted From Base 16:59 Carpet Cleaning Technician For [facility] 12/19/24 Transmitted 24 Hours 16:59 Emergency Dysrhythmia [facility] 12/19/24 Transmitted Protocol 16:59 Rhythm Strips Once [facility] 12/19/24 Transmitted Every Shift 16:59 Oxygen By Nasal RT 12/19/24 Transmitted Cannula 16:59 Date of Service: Dec 19, 2024 Billing Provider: ALECIA CADET Common Visit Codes: [id number] INP/OBS CARE (MOD) ALECIA CADET Dec 19, 2024 17:27
--- NOTE | 2024-12-19 17:48 | DVH ---
Carotid Duplex Date: 12/19/2024 05:12 PM Clinical History: syncope, bradycardia Comparison: None Technique: Duplex Doppler evaluation of the extracranial carotid and vertebral arteries including col or Doppler and spectral/pulsed waveform analysis was performed. Findings: RIGHT SIDE: The peak systolic velocities are 86 cm/s in the distal CCA and 89 cm/s in the proximal ICA.The ICA/CC A ratio is less than 2. The external carotid artery is patent with peak systolic velocity of 75 cm/s proximally. There is appropriate antegrade flow in the right vertebral artery. LEFT SIDE: The peak systolic velocities are 71 cm/s in the distal CCA and 121 cm/s in the proximal ICA.. The ICA /CCA ratio is less than 2. The external carotid artery is patent with peak systolic velocity of 75 cm/s proximally. There is appropriate antegrade flow in the left vertebral artery. IMPRESSION: No hemodynamically significant stenosis noted in the right carotid system. No hemodynamically significant stenosis noted in the left carotid system. Reference: Radiology 2003; [id number]
[2024-12-19] MEDS: SODIUM CHLORIDE 0.9% 1,000 ML IV ONE ×2 (17:52→21:15)
[2024-12-19] MEDS: cefTRIAXone 1GM/50ML D5W 50 ML IV ONE (17:52)
[2024-12-19 19:10] LABS: Urine Protein, UAD Negative (Negative)
[2024-12-19 20:11] VITALS: PULSE 49; RESP 16; O2SAT 95
[2024-12-19] MEDS: MEMANTINE HCL 5 MG TAB PO SCH (21:53)
[2024-12-19] MEDS: HYDROcodone-ACET 5/325MG TAB PO PRN (21:54)
[2024-12-19] MEDS: DONEPEZIL HYDROCHLORIDE 5 MG TAB PO SCH (21:54)
[2024-12-19] MEDS: NORTRIPTYLINE HCL 10 MG CAP PO SCH (22:00)
[2024-12-20] VITALS (7 sets, daily range): BP systolic 132–142; BP diastolic 75–81; PULSE 53–75; RESP 16–18; TEMP 97.8–98.7; O2SAT 92–98
[2024-12-20 04:06] LABS: Hematocrit 41.3 % (36.0-46.0); Hemoglobin 14.2 g/dL (12.2-16.2); Mean Corpuscular Hemoglobin 33.7 pg (28.0-32.0); Mean Corpuscular Volume 97.6 fL (80.0-100.0); Nucleated Red Blood Cells % 0.0 %
[2024-12-20 04:36] LABS: Alanine Aminotransferase 14 U/L (7-40); Albumin 3.7 g/dL (3.2-4.8); Alkaline Phosphatase 59 U/L (46-116); Anion Gap 10 (5-15); BUN/Creatinine Ratio 14.5 (10.0-20.0); Bilirubin, Total 0.6 mg/dL (0.2-1.0); Blood Urea Nitrogen 10 mg/dL (9-23); Calcium 8.9 mg/dL (8.7-10.4); Carbon Dioxide 24 mmol/L (20-31); Chloride 106 mmol/L (98-107); Glucose 101 mg/dL (74-106); Potassium 3.6 mmol/L (3.5-5.1); Sodium 140 mmol/L (136-145); Total Protein 5.8 g/dL (5.7-8.2)
[2024-12-20] MEDS: MORPHINE SULFATE INJ 2 MG/ml SYRG IV ONE (04:36)
[2024-12-20] MEDS: ONDANSETRON HCL 4 MG/2 ML VIAL IV PRN (08:29)
[2024-12-20] MEDS: MORPHINE SULFATE INJ 2 MG/ml SYRG IV PRN ×2 (08:30→21:13)
[2024-12-20] MEDS: SODIUM CHLORIDE 0.9% 1,000 ML IV ONE (09:02)
[2024-12-20] MEDS: cefTRIAXone 1GM/50ML D5W 50 ML IV SCH (09:07)
--- NOTE | 2024-12-20 13:50 | DVHPNRES ---
Progress Note Date Seen: Dec 20, 2024 Resident Creating Document: HARJINDER HOUSTON RESIDENT Has the PT tested + for MRSA If YES, has PT been informed?: No Medical Necessity Reason Pt with a Central, PICC or Fol: No Subjective Review of Systems This is 74 years old female with past medical history of colitis, dementia, anxiety, depression presented to hospital after syncopal episodes yesterday morning. The episode happened while attempting to have a bowel movement, presents with heavy rectal bleeding, severe lower abdominal pain, diaphoresis and then collapsed. Patient reports having had a similar event 2 years ago during a colitis flare-up with heavy bleeding. Patient has history of colitis, status post EGD and colonoscopy two years ago in [facility] with polyp removal. Patient occasionally has history of constipation, but was having loose stool for the last few days, and noticed two episodes of red blood rectally. No melena or red blood in his stool at this time. Denies nausea vomiting. Able to tolerate a regular diet. Patient also was having abdominal pain in the lower abdomen, which is improving at this time. Patient was noted to be bradycardic in the 40-50's, BP is stable. Patient reports pain in her hands and feet every morning. Carotid Doppler Study- No stenosis in the Left/Right carotid system. Abdomen/pelvic CT- Possible Colitis, Distended stomach. 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 Past Medical History Colitis, dementia, anxiety, depression Past Surgical History None Past Social History <1 pack per day, no drink, no drug Review of Systems Constitutional: Yes: Sweats; No: Fever, Chills, Weakness, Malaise, Other Eyes: No: Pain, Vision change, Conjunctivae inflammation, Eyelid inflammation, Other, Redness ENT: Yes: Dry mouth, No: Ear pain, Ear discharge, Nose pain, Nose discharge, Nose congestion, Mouth pain, Mouth swelling, Throat pain, Throat swelling, Other Respiratory: No: Cough, Dry, Shortness of breath, SOB with excertion, Wheezing, Hemoptysis, Pleuritic Pain, Sputum, Wheezing, Other Cardiovascular: No: Chest Pain, Palpitations, Orthopnea, Paroxysmal Noc. Dyspnea, Edema, Lt Headedness, Other Gastrointestinal: Yes: Abdominal Pain, Diarrhea (blood in stool, minimal); No: Nausea, Vomiting, Constipation, Melena, Hematochezia, Other Genitourinary: No Dysuria, No Frequency, No Incontinence, No Hematuria, No Retention, No Other Musculoskeletal: Yes: Hand pain, leg pain, No: other, neck pain, shoulder pain, arm pain, back pain, foot pain Skin: No: Rash, Lesions, Jaundice, Bruising, Other Neurological: Yes: Dementia, Anxiety, Depression, Weakness, Other (syncopal episdose, dizzy); No: Numbness, Incoordination, Change in speech, Confusion, Seizures Allergies: Coded Allergies: NO KNOWN ALLERGIES (Unverified , 12/17/20) Objective vital signs Vital Sign Date Time Temp Pulse Resp B/P (MAP) Pulse Ox O2 Delivery O2 Flow Rate FiO2 12/20/24 13:08 98.4 57 18 136/81 (99) 96 98.4 12/20/24 07:30 Room Air* 0 21 Total Intake and Output 12/19/24 12/19/24 12/20/24 15:00 23:00 07:00 Intake Total 1200 ml 800 ml Balance 1200 ml 800 ml medications Current Medications Medications Dose Ordered Sig/Marky Route Start Time Stop Time Status Last Admin Dose Admin Acetaminophen/ Hydrocodone Bitart 1 tab Q4HP PRN PO 12/19/24 17:00 12/19/24 21:54 1 TAB Ondansetron HCl 4 mg Q4HP PRN IV 12/19/24 17:00 12/20/24 08:29 4 MG Acetaminophen 650 mg Q6HP PRN PO 12/19/24 17:00 Donepezil HCl 5 mg BID PO 12/19/24 22:00 12/19/24 21:54 5 MG Memantine 10 mg BID PO 12/19/24 22:00 12/20/24 11:51 10 MG Metronidazole 100 ml @ 100 mls/hr Q8HR IV 12/19/24 22:00 12/20/24 06:07 100 MLS/HR Ceftriaxone Sodium 50 ml @ 100 mls/hr DAILY@09 IV 12/20/24 09:00 12/20/24 09:07 100 MLS/HR Nicotine 1 patch DAILY TD 12/21/24 10:00 Examination General Appearance: Alert, Oriented X3, Cooperative, mild distress HEENT: Atraumatic, PERRLA Respiratory: Clear to auscultation, Normal air movement Cardiovascular: Normal S1, Normal S2, Other (bradycardia) Abdominal: Normal bowel sounds, Soft, Other (Right and Left Lower abdominal pain and pelvic pain) Extremities: No clubbing, No cyanosis, No edema, Normal pulses, Other (Right and Left hand pain) Skin: No rashes, No breakdown, No significant lesion Neuro: Normal gait, Normal speech, Strength at 5/5 X4 ext, Normal tone Psych/Mental Status: Mental status NL, Mood NL laboratory and microbiology Laboratory Tests 12/20/24 02:56 Test 12/20/24 02:56 Range/Units Serum Glucose 101 74-106 mg/dL Problem List/Assessment/Plan Problem List/Assessment/Plan # Syncopal episode -Carotid Doppler Study-No stenosis in the Left/Right carotid system -Abdominal/Pelvic CT- Possible Colitis/Distended stomach -continue telemetry # 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 -WILLIAM Direct (lab) -Rheumatoid arthritis factor # Bradycardia -continue telemetry -no associated dizziness # Intractable abdominal pain possible due to ischemic or inflammatory colitis -supportive care -Lower abdominal pain # Possible colitis # Possible lower GI bleed -Hx of colitis, prior colonoscopy with polyp removal -continue IV fluids -Follow up with GI -Stool studies WBC (lab) -no hemorroids (rectal examination performed) -stool occult test negative # Dementia -continue Memantine -continue Donepezile # Anxiety # depression -continue Duloxetine -suicidal attempt Plan discussed with: Patient, Other (RN) Date of Service: Dec 20, 2024 Billing Provider: SHERIE AREVALO MD Common Visit Codes: [id number] INP/OBS CARE(HIGH) HARJINDER HOUSTON RESIDENT Dec 20, 2024 13:50 SHERIE AREVALO MD Dec 22, 2024 14:26
--- NOTE | 2024-12-20 14:20 | DVHINCON2 ---
GI Consult Consult Note GI consult note Date of Consultation: 12/20/2024 Chief Complaint: Rectal bleeding Referring Physician: Ulysses SOLIS H&P: 74-year-old female past medical history of colitis, dementia, anxiety, depression presented to hospital after syncopal event Patient has history of colitis, status post EGD and colonoscopy two years ago in [facility] with polyp removal Patient occasionally has history of constipation, but was having loose stool for the last few days, and noticed two episodes of red blood rectally. No melena or red blood in his stool at this time. Denies nausea vomiting. Able to tolerate a regular diet Patient also was having abdominal pain in the lower abdomen, which is improving at this time Past Medical History: Colitis, dementia, anxiety, depression Past Surgical History: None Social History: + smoking, no drinking ETOH and use of illegal drugs. Family History: Noncontributory Review of Systems: Constitutional: no fever, chill, weight loss HEENT: no eye pain, no hearing loss, no oral lesion, no scleral icterus Heart: no chest pain, no chest pressure Lung: no cough, no dyspnea with exertion Abdomen: see HPI Physical exam: General: NAD, AAOX3 Chest: lung kelly clear to auscultation Heart: RRR, no murmur Abdomen: non-distended, mild lower abdominal tenderness to palpation, +BS Labs: Labs Test 12/20/24 04:44 12/20/24 02:56 12/19/24 17:40 12/19/24 12:15 Range/Units Stool Occult Blood Negative Negative Stool Occult Blood Sample #3 Negative White Blood Count 8.7 # 4.4-10.8 10^3/uL Red Blood Count 4.23 4.0-5.20 10^6/uL Hemoglobin 14.2 12.2-16.2 g/dL Hematocrit 41.3 36.0-46.0 % Mean Corpuscular Volume 97.6 80.0-100.0 fL Mean Corpuscular Hemoglobin 33.7 H 28.0-32.0 pg Mean Corpuscular Hemoglobin Concent 34.5 32.0-36.0 g/dL Red Cell Distribution Width 12.0 11.8-14.3 % Platelet Count 254 140-450 10^3/uL Mean Platelet Volume 6.7 L 6.9-10.8 fL Neutrophils (%) (Auto) 72.2 37.0-80.0 % Lymphocytes (%) (Auto) 21.7 10.0-50.0 % Monocytes (%) (Auto) 5.0 0.0-12.0 % Eosinophils (%) (Auto) 0.7 0.0-7.0 % Basophils (%) (Auto) 0.4 0.0-2.0 % Neutrophils # (Auto) 6.3 1.6-8.6 10 ^3/uL Lymphocytes # (Auto) 1.9 0.4-5.4 10 ^3/uL Monocytes # (Auto) 0.4 0-1.3 10 ^3/uL Eosinophils # (Auto) 0.1 0-0.8 10 ^3/uL Basophils # (Auto) 0 0-0.2 10 ^3/uL Nucleated Red Blood Cells 0.0 % Sodium Level 140 136-145 mmol/L Potassium Level 3.6 3.5-5.1 mmol/L Chloride Level 106 98-107 mmol/L Carbon Dioxide Level 24 20-31 mmol/L Anion Gap 10 5-15 Blood Urea Nitrogen 10 9-23 mg/dL Creatinine 0.69 0.550-1.02 mg/dL Glomerular Filtration Rate Calc 92 >90 mL/min BUN/Creatinine Ratio 14.5 10.0-20.0 Serum Glucose 101 74-106 mg/dL Calcium Level 8.9 8.7-10.4 mg/dL Total Bilirubin 0.6 0.2-1.0 mg/dL Aspartate Amino Transferase (AST) 20 13-40 U/L Alanine Aminotransferase (ALT) 14 7-40 U/L Alkaline Phosphatase 59 46-116 U/L Total Protein 5.8 5.7-8.2 g/dL Albumin 3.7 3.2-4.8 g/dL Urine Color Light-yellow Yellow Urine Clarity Clear Clear Urine pH 8.0 5.0-9.0 Urine Specific [place] 1.013 1.001-1.035 Urine Protein Negative Negative Urine Ketones Trace Negative Urine Blood Negative Negative /uL Urine Nitrite Negative Negative Urine Bilirubin Negative Negative Urine Urobilinogen Normal Negative mg/dL Urine Leukocyte Esterase Negative Negative /uL Urine RBC 3 0 - 4 /hpf Urine Microscopic WBC 1 0-5 /HPF Urine Squamous Epithelial Cells Few <5 /hpf Urine Bacteria None seen None Seen /hpf Urine Glucose Normal Normal mg/dL Prothrombin Time 10.3 9.3-11.8 sec Prothrombin Time INR 0.97 0.9-1.15 Activated Partial Thromboplast Time 23.6 L 24.5-34.5 SEC Imaging: CT abdomen pelvis IMPRESSION: Possible colitis. Distended stomach. Assessment: Rectal bleed History of colitis Abdominal pain improving Syncope Plan: Discussed with Dr. Luna Protonix Continue IV antibiotics Diet as tolerated Monitor labs We will continue to follow patient Plan discussed with patient and family at bedside Thank you for this consult Date of Service: Dec 20, 2024 Billing Provider: BRIEN ROSS Common Visit Codes: CONSULT ONLY Consultation Codes: [id number] CONSULT <60MIN BRIEN ROSS Dec 20, 2024 14:20
--- NOTE | 2024-12-20 14:43 | DVH ---
EXAM: XY R HAND 2 VIEW XRAY, XY L HAND 2V XRAY CLINICAL INDICATION: hand deformity TECHNIQUE: XY R HAND 2 VIEW XRAY, XY L HAND 2V XRAY Comparison: None FINDINGS/IMPRESSION: There is no evidence of acute fracture or dislocation. 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 There is no radiopaque foreign body.
[2024-12-20] MEDS: NICOTINE 14 MG/24HR TOPICAL PATCH TD ONE (16:09)
--- NOTE | 2024-12-20 17:35 | ECG ---
[facility] Test Date: 2024-12-19 Test Time: 11:46:06 Pat Name: THERESA GUERRERO Department: ED Room: 0212T A Gender: F [employer]: MISHEL : 1950 Requested By: DENIS JENKINS Order Number: [id number] Reading MD: Cedric Pickett Measurements Intervals [place] Rate: 45 P: 72 NE: 167 QRS: 32 QRSD: 91 T: 43 QT: 479 QTc: 415 Interpretive Statements Sinus bradycardia Borderline low voltage, extremity leads Minimal ST elevation, inferior leads Electronically Signed On 12-21-2024 16:58:40 PDT by Cedric Pickett Please click the below link to view image of tracing.
[2024-12-21 01:05] VITALS: BP 108/60; PULSE 71; RESP 19; TEMP 97.5; O2SAT 94
[2024-12-21 05:00] VITALS: BP 121/70; PULSE 65; RESP 17; TEMP 97.4; O2SAT 95
[2024-12-21 05:27] LABS: Hematocrit 36.9 % (36.0-46.0); Hemoglobin 12.8 g/dL (12.2-16.2); Mean Corpuscular Hemoglobin 33.4 pg (28.0-32.0); Mean Corpuscular Volume 96.1 fL (80.0-100.0); Nucleated Red Blood Cells % 0.0 %
[2024-12-21 05:42] LABS: Calcium 9.0 mg/dL (8.7-10.4); Chloride 104 mmol/L (98-107); Sodium 138 mmol/L (136-145)
[2024-12-21 05:43] LABS: Anion Gap 9 (5-15); Carbon Dioxide 25 mmol/L (20-31); Potassium 3.5 mmol/L (3.5-5.1)
[2024-12-21 05:49] LABS: BUN/Creatinine Ratio 9.2 (10.0-20.0); Glucose 93 mg/dL (74-106)
[2024-12-21 05:58] LABS: Blood Urea Nitrogen 6 mg/dL (9-23)
[2024-12-21 07:45] VITALS: RESP 18
[2024-12-21 08:59] VITALS: BP 104/53; PULSE 56; RESP 15; TEMP 98.2; O2SAT 93
[2024-12-21] MEDS: NICOTINE 14 MG/24HR TOPICAL PATCH TD SCH (09:07)
--- NOTE | 2024-12-21 09:46 | DVHSR ---
APPROVED REPORT EXAM: Two-dimensional and M-mode echocardiogram with Doppler and color Doppler. Blood Pressure: 153/63 mmHg INDICATION Syncope Bradycardia RISK FACTORS Height: 5'2", Weight: 110 DIMENSIONS LVDd4.4 (3.8-5.7cm)LA (2D)3.5 (1.9-4.0cm)Aortic Root3.1 (2.0-3.7cm) LVDs2.5 (2.5-4.0cm)LA (MM) (1.9-4.0cm)Aortic Cusp Exc1.7 (1.5-2.0cm) EF (%) 65.0 (55-70%)Rt. Atrium3.4 (1.9-4.0cm)Asc. Aorta cm IVSd0.7 (0.7-1.1cm)RV (D) (1.8-2.4cm) PWd0.8 (0.7-1.1cm) Mitral Valve MitralMitral Stenosis E wave0.88m/sMV Mean GR.mmHg A wave0.96m/sMV Peak GR.mmHg E/A ratio0.92D MVAcm2 DECEL [id number] 1/2 Timems Aortic Valve Aortic ValveAortic Stenosis V11.11m/More Mean GR.4mmHg V21.54m/More Peak GR.9mmHg LVOT Diameter1.9 (1.8-2.4cm)Doppler AVA2.04cm2 Pulmonic Valve V20.65m/s Tricuspid Valve TR Velocity2.73m/s [id number] Conclusion NORMAL LV EF IS 70% NORMAL VALVES NORMAL RV FUNCTION NO EFFUSION NORMAL RVSP
[2024-12-21] MEDS: SODIUM CHLORIDE 0.9% 500 ML IV ONE (10:00)
--- NOTE | 2024-12-21 10:58 | DVHPNRES ---
Progress Note Date Seen: Dec 21, 2024 Resident Creating Document: HARJINDER HOUST[place] RESIDENT Has the PT tested + for MRSA If YES, has PT been informed?: No Medical Necessity Reason Pt with a Central, PICC or Fol: No Objective vital signs Vital Sign Date Time Temp Pulse Resp B/P (MAP) Pulse Ox O2 Delivery O2 Flow Rate FiO2 12/21/24 08:59 98.2 56 15 104/53 (70) 93 98.2 12/21/24 07:45 Room Air* 0 21 Total Intake and Output 12/20/24 12/20/24 12/21/24 15:00 23:00 07:00 Intake Total 450 ml 780 ml Balance 450 ml 780 ml medications Current Medications Medications Dose Ordered Sig/Marky Route Start Time Stop Time Status Last Admin Dose Admin Acetaminophen/ Hydrocodone Bitart 1 tab Q4HP PRN PO 12/19/24 17:00 12/21/24 05:20 1 TAB Ondansetron HCl 4 mg Q4HP PRN IV 12/19/24 17:00 12/20/24 08:29 4 MG Acetaminophen 650 mg Q6HP PRN PO 12/19/24 17:00 Donepezil HCl 5 mg BID PO 12/19/24 22:00 12/21/24 09:06 5 MG Memantine 10 mg BID PO 12/19/24 22:00 12/21/24 09:06 10 MG Metronidazole 100 ml @ 100 mls/hr Q8HR IV 12/19/24 22:00 12/21/24 05:14 100 MLS/HR Ceftriaxone Sodium 50 ml @ 100 mls/hr DAILY@09 IV 12/20/24 09:00 12/21/24 09:07 100 MLS/HR Nicotine 1 patch DAILY TD 12/21/24 10:00 12/21/24 09:07 1 PATCH Morphine Sulfate 2 mg Q4HPRN PRN IV 12/20/24 18:45 12/20/24 21:13 2 MG laboratory and microbiology Laboratory Tests 12/21/24 04:12 Test 12/21/24 04:12 Range/Units Serum Glucose 93 74-106 mg/dL Microbiology Date/Time Source Procedure Growth Status 12/20/24 19:58 Stool Stool Culture - Preliminary Resulted 12/20/24 19:58 Stool Shiga Toxin I & II Pending Resulted Problem List/Assessment/Plan Problem List/Assessment/Plan # Syncopal episode -Carotid Doppler Study-No stenosis in the Left/Right carotid system -Abdominal/Pelvic CT- Possible Colitis/Distended stomach -continue telemetry # 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 -W[facility]IAM Direct (lab) -Rheumatoid arthritis factor # Bradycardia -continue telemetry -no associated dizziness # Intractable abdominal pain possible due to ischemic or inflammatory colitis -supportive care -Lower abdominal pain # Possible colitis # Possible lower GI bleed -Hx of colitis, prior colonoscopy with polyp removal -continue IV fluids -Follow up with GI -Stool studies WBC (lab) -no hemorroids (rectal examination performed) -stool occult test negative # Dementia -continue Memantine -continue Donepezile # Anxiety # depression -continue Duloxetine -suicidal attempt HARJINDER HOUSTON RESIDENT Dec 21, 2024 10:57
[2024-12-21 11:07] LABS: Anti-Nuclear Antibody Direct Negative (Negative)
[2024-12-21] MEDS ORDERED: LEVO500T91 PO (11:28)
[2024-12-21] MEDS ORDERED: SACC1CAP3 PO (11:28)
[2024-12-21] MEDS ORDERED: METR-344 PO (11:28)
[2024-12-21 13:00] VITALS: BP 101/58; PULSE 58; RESP 16; TEMP 98.6; O2SAT 91
--- NOTE | 2024-12-21 13:13 | DVHPN2 ---
Progress Note - Dictate Date Seen: Dec 21, 2024 Has the PT tested + for MRSA If YES, has PT been informed?: No Medical Necessity Reason Pt with a Central, PICC or Fol: No Subjective Patient continues to have intermittent rectal bleeding Stool showed many WBC suggestive of colitis Stool cultures pending vital signs Vital Sign Date Time Temp Pulse Resp B/P (MAP) Pulse Ox O2 Delivery O2 Flow Rate FiO2 12/21/24 08:59 98.2 56 15 104/53 (70) 93 98.2 12/21/24 07:45 Room Air* 0 21 Total Intake and Output 12/20/24 12/20/24 12/21/24 15:00 23:00 07:00 Intake Total 450 ml 780 ml Balance 450 ml 780 ml medications Current Medications Medications Dose Ordered Sig/Marky Route Start Time Stop Time Status Last Admin Dose Admin Acetaminophen/ Hydrocodone Bitart 1 tab Q4HP PRN PO 12/19/24 17:00 12/21/24 05:20 1 TAB Ondansetron HCl 4 mg Q4HP PRN IV 12/19/24 17:00 12/20/24 08:29 4 MG Acetaminophen 650 mg Q6HP PRN PO 12/19/24 17:00 Donepezil HCl 5 mg BID PO 12/19/24 22:00 12/21/24 09:06 5 MG Memantine 10 mg BID PO 12/19/24 22:00 12/21/24 09:06 10 MG Metronidazole 100 ml @ 100 mls/hr Q8HR IV 12/19/24 22:00 12/21/24 05:14 100 MLS/HR Ceftriaxone Sodium 50 ml @ 100 mls/hr DAILY@09 IV 12/20/24 09:00 12/21/24 09:07 100 MLS/HR Nicotine 1 patch DAILY TD 12/21/24 10:00 12/21/24 09:07 1 PATCH Morphine Sulfate 2 mg Q4HPRN PRN IV 12/20/24 18:45 12/20/24 21:13 2 MG objective General: NAD, AAOX3 Chest: lung kelly clear to auscultation Heart: RRR, no murmur Abdomen: non-distended, mild lower abdominal tenderness to palpation, +BS Ext no c/c/e laboratory and microbiology Laboratory Tests 12/21/24 04:12 Test 12/21/24 04:12 Range/Units Serum Glucose 93 74-106 mg/dL Problems(with codes): (1) Autonomic dysfunction (2) Diffuse abdominal pain (3) Abnormal finding on GI tract imaging (4) BRBPR (bright red blood per rectum) (5) Colitis Prognosis Plan Patient is on a 2 g sodium diet Discharge planning is in progress Supportive care Patient is being discharged home on Levaquin and Flagyl She will follow up in my office in 2-4 weeks to discuss elective screening colonoscopy Patient did return to the ER if the symptoms get worse Plan discussed with: Patient, Other (Nurse Joseph) INES KANG MD Dec 21, 2024 13:13
--- NOTE | 2024-12-21 14:44 | DVHDSRES ---
Discharge Summary Date of Admission Resident Creating Document: HARJINDER HOUSTON RESIDENT Dec 19, 2024 at 16:59 Date of Discharge: Dec 21, 2024 Admitting Diagnosis Syncope Labs/Diagnostic Data: Laboratory Results Test 12/21/24 04:12 12/20/24 19:58 12/20/24 13:58 12/20/24 04:44 White Blood Count 10.2 10^3/uL (4.4-10.8) Red Blood Count 3.84 10^6/uL (4.0-5.20) Hemoglobin 12.8 g/dL (12.2-16.2) Hematocrit 36.9 % (36.0-46.0) Mean Corpuscular Volume 96.1 fL (80.0-100.0) Mean Corpuscular Hemoglobin 33.4 pg (28.0-32.0) Mean Corpuscular Hemoglobin Concent 34.8 g/dL (32.0-36.0) Red Cell Distribution Width 12.2 % (11.8-14.3) Platelet Count 216 10^3/uL (140-450) Mean Platelet Volume 6.9 fL (6.9-10.8) Neutrophils (%) (Auto) 81.9 % (37.0-80.0) Lymphocytes (%) (Auto) 12.2 % (10.0-50.0) Monocytes (%) (Auto) 5.2 % (0.0-12.0) Eosinophils (%) (Auto) 0.4 % (0.0-7.0) Basophils (%) (Auto) 0.3 % (0.0-2.0) Neutrophils # (Auto) 8.4 10 ^3/uL (1.6-8.6) Lymphocytes # (Auto) 1.2 10 ^3/uL (0.4-5.4) Monocytes # (Auto) 0.5 10 ^3/uL (0-1.3) Eosinophils # (Auto) 0 10 ^3/uL (0-0.8) Basophils # (Auto) 0 10 ^3/uL (0-0.2) Nucleated Red Blood Cells 0.0 % Sodium Level 138 mmol/L (136-145) Potassium Level 3.5 mmol/L (3.5-5.1) Chloride Level 104 mmol/L (98-107) Carbon Dioxide Level 25 mmol/L (20-31) Anion Gap 9 (5-15) Blood Urea Nitrogen 6 mg/dL (9-23) Creatinine 0.65 mg/dL (0.550-1.02) Glomerular Filtration Rate Calc 93 mL/min (>90) BUN/Creatinine Ratio 9.2 (10.0-20.0) Serum Glucose 93 mg/dL (74-106) Calcium Level 9.0 mg/dL (8.7-10.4) Vitamin B12 Level 237 pg/mL (211-911) Vitamin D 25-Hydroxy 33.3 ng/mL (30.0-100) Thyroid Stimulating Hormone (TSH) 1.22 uIU/mL (0.55-4.78) Stool for White Cells Many Rheumatoid Factor 11.4 IU/mL (<14.0) Anti-Nuclear Antibody Screen Negative (Negative) Stool Occult Blood Negative (Negative) Stool Occult Blood Sample #3 (Negative) Test 12/20/24 02:56 12/19/24 17:40 12/19/24 12:15 Total Bilirubin 0.6 mg/dL (0.2-1.0) Aspartate Amino Transferase (AST) 20 U/L (13-40) Alanine Aminotransferase (ALT) 14 U/L (7-40) Alkaline Phosphatase 59 U/L (46-116) Total Protein 5.8 g/dL (5.7-8.2) Albumin 3.7 g/dL (3.2-4.8) Urine Color Light-yellow (Yellow) Urine Clarity Clear (Clear) Urine pH 8.0 (5.0-9.0) Urine Specific [place] 1.013 (1.001-1.035) Urine Protein Negative (Negative) Urine Ketones Trace (Negative) Urine Blood Negative /uL (Negative) Urine Nitrite Negative (Negative) Urine Bilirubin Negative (Negative) Urine Urobilinogen Normal mg/dL (Negative) Urine Leukocyte Esterase Negative /uL (Negative) Urine RBC 3 /hpf (0 - 4) Urine Microscopic WBC 1 /HPF (0-5) Urine Squamous Epithelial Cells Few /hpf (<5) Urine Bacteria None seen /hpf (None Seen) Urine Glucose Normal mg/dL (Normal) Prothrombin Time 10.3 sec (9.3-11.8) Prothrombin Time INR 0.97 (0.9-1.15) Activated Partial Thromboplast Time 23.6 SEC (24.5-34.5) Other Laboratory Tests 12/21/24 04:12 Brief Hx & Hospital Course: This is 74 years old female with past medical history of colitis, dementia, anxiety, depression presented to hospital after syncopal episodes yesterday morning. The episode happened while attempting to have a bowel movement, presents with heavy rectal bleeding, severe lower abdominal pain, diaphoresis and then collapsed. Patient reports having had a similar event 2 years ago during a colitis flare-up with heavy bleeding. Patient has history of colitis, status post EGD and colonoscopy two years ago in [facility] with polyp removal. Patient occasionally has history of constipation, but was having loose stool for the last few days, and noticed two episodes of red blood rectally. No melena or red blood in his stool at this time. Denies nausea vomiting. Able to tolerate a regular diet. Patient also was having abdominal pain in the lower abdomen, which is improving at this time. Patient was noted to be bradycardic in the 40-50's, BP is stable. Patient reports pain in her hands and feet every morning. Carotid Doppler Study- No stenosis in the Left/Right carotid system. Abdomen/pelvic CT- Possible Colitis, Distended stomach. 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 Brief history of hospitalization: Patient came in with syncopal episode. A carotid Doppler study was done that showed no stenosis in the right and left carotid system an abdominal pelvis and CT scan showed possible colitis / distended stomach. We continued the patient on telemetry. For patient's autonomic dysfunction possible due to Sjogren syndrome, and hand and feet pain, would continue duloxetine for pain control. X-ray hand showed that there is no evidence of acute fracture or dislocation. 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 Reordered a direct WILLIAM, rheumatoid arthritis factor which both came back normal. The patient has bradycardia we continue to monitor him and he had no associated dizziness. For intractable abdominal pain possibly due to ischemia inflammatory colitis we continued with supportive care. For Acute colitis and possible lower GI bleed we continued IV fluids. Stool culture study was done and preliminary report show normal enteric dayanara, still ruling out pathogens. We also performed a rectal examination that showed no hemorrhoids and stool occult test came back negative. GI consultation was done. They suggested a follow-up to discuss elective screening colonoscopy in 2-4 weeks. The patient has dementia we continued his home medication of memantine and donepezil. For his anxiety and depression we continued his home medication of duloxetine. The patient is now stable for discharge. Since patient has blood in the stool we have counseled her regarding the need for outpatient GI consultation Discussed and for the need of elective screening colonoscopy. Patient is being discharged home on Levaquin and Flagyl. Patient has communicated understanding. Exam: CT CT AB PEL WO CON-NO ORAL OR IV General Appearance: Alert, Oriented X3, Cooperative, mild distress HEENT: Atraumatic, PERRLA Respiratory: Clear to auscultation, Normal air movement Cardiovascular: Normal S1, Normal S2, Other (bradycardia) Abdominal: Normal bowel sounds, Soft, Other (Right and Left Lower abdominal pain and pelvic pain) Extremities: No clubbing, No cyanosis, No edema, Normal pulses, Other (Right and Left hand pain) Skin: No rashes, No breakdown, No significant lesion Neuro: Normal gait, Normal speech, Strength at 5/5 X4 ext, Normal tone Psych/Mental Status: Mental status NL, Mood NL Operations or Procedures Abdominal/pelvic CT scan IMPRESSION: Possible colitis. Distended stomach. Carotid Duplex IMPRESSION: No hemodynamically significant stenosis noted in the right carotid system. No hemodynamically significant stenosis noted in the left carotid system. Reference: Radiology 2003; [id number] EXAM: XY R HAND 2 VIEW XRAY, XY L HAND 2V XRAY FINDINGS/IMPRESSION: There is no evidence of acute fracture or dislocation. 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 There is no radiopaque foreign body. Condition at Discharge: Stable Final Diagnosis/Problems List # Acute Colitis # Syncopal episode # Autonomic dysfunction possible Sjgren's syndrome # Hands and feet pain # Bradycardia # Intractable abdominal pain possible due to ischemic or inflammatory colitis # Possible lower GI bleed # Dementia # Anxiety # depression Discharge Disposition: Home SNF Discharge Will this Physician continue t: No Discharge Instruct/Medications Diet: See Comment Diet comment: CLEAR LIQUID X 7 DAYS Activity: Light activity Follow Up/Referral: PCP Medications: LEVAQUIN AND FLAGYL Scheduled Donepezil Hydrochloride (Donepezil Hcl), 0.5 TAB PO BID, (Reported) Duloxetine HCl (Duloxetine HCl), 1 CAP PO DAILY, (Reported) Levofloxacin Hemihydrate (Levaquin 500 Mg), 500 MG PO DAILY Memantine Hydrochloride (Memantine HCl), 1 TAB PO BID, (Reported) Metronidazole (Flagyl), 500 MG PO TID Nortriptyline HCl (Nortriptyline Hydrochlori), 1 CAP PO HS, (Reported) Yeast (S. Boulardii)(S. Cerevi (Probiotic), 250 MG PO DAILY Discontinued Medications Levofloxacin (Levaquin), 500 MG PO DAILY Metronidazole (Flagyl), 500 MG PO TID Discharge Statement: "Patient was advised to return to the ER or call 911 if any headaches, dizziness, shortness of breath, chest pain, abdominal pain, bleeding, fevers, or worsening of medical condition. Patient was counseled about treatment plan, medications, possible side effects, patientverbalized understanding. All questions were answered to the best of my ability. This discharge took greater then 30 minutes in planning, reviewing documentation, counseling the patient, and discussing with other team members." ASSESSMENT ASSESSMENT Assessment Acute Colitis Date of Service: Dec 21, 2024 Billing Provider: MEGAN MELTON MD Common Visit Codes: 53096-GOZ/OBS DISCH DAY >30min HARJINDER HOUSTON RESIDENT Dec 21, 2024 14:44 MEGAN MELTON MD Dec 21, 2024 17:09
== END 2024-12-21 15:15 | disposition home or self-care (01) | DRG 73 ==
LOC: EDBD 11:41 → ER 11:43 → OVERFLOW 16:59 → TELE-CENTR 12-20 12:30
PROVIDERS: ADMIT Student in an Organized Health Care Education/Training Program; ATTEND Student in an Organized Health Care Education/Training Program
DX: G90.9 Disorder of the autonomic nervous system, unspecified (principal); K55.039 Acute (reversible) ischemia of large intestine, extent unspecified; F02.83 Dementia in other diseases classified elsewhere, unspecified severity, with mood disturbance; F02.84 Dementia in other diseases classified elsewhere, unspecified severity, with anxiety; K52.9 Noninfective gastroenteritis and colitis, unspecified; M35.00 Sjogren syndrome, unspecified; F40.9 Phobic anxiety disorder, unspecified; G30.9 Alzheimer's disease, unspecified; M06.9 Rheumatoid arthritis, unspecified; F17.210 Nicotine dependence, cigarettes, uncomplicated; Z79.899 Other long term (current) drug therapy
CPT/HCPCS: 36415; 73120; 74176; 80048; 80053; 81001; 82270; 82306; 82607; 83036; 84443; 85025; 85048; 85610; 85730; 86038; 86431; 86850; 86900; 86901; 87045; 87427; 93005; 93306; 93886; 96365; 96375; 99291; G0378; J2405; J3490